=== PATIENT | male | born 1945 | race Caucasian/White ===

== ENCOUNTER 2016-10-17 10:55 | Emergency (ER) | payer MEDICARE, BC ==
[~2016-10-17] VITALS: Ht 180.3 cm; Wt 84.3 kg
[2016-10-17 10:58] VITALS: BP 161/88
[2016-10-17] MEDS ORDERED: KETOROLAC 30 MG/1 ML IM ONE (12:30)
[2016-10-17] MEDS ORDERED: KETOROLAC 30 MG/1 ML ONE (12:59)
== END 2016-10-17 13:14 | disposition home or self-care (01) ==
LOC: ED 13:07
DX: M10.071 Idiopathic gout, right ankle and foot (principal); M79.672 Pain in left foot
CPT/HCPCS: 96372; 99283; J1885